=== PATIENT | male | born 1950 ===

== ENCOUNTER 2017-02-11 08:17 | Day surgery (SDC) | payer MEDICARE, BC ==
[2017-02-06 10:01] VITALS: BMI 31.0
[2017-02-11 09:21] VITALS: TEMP 98; O2SAT 99
[2017-02-11] MEDS ORDERED: Propofol 10 mg/ml Inj (20 ML) ONE (10:40)
[2017-02-11] MEDS ORDERED: Midazolam 2 MG/2 ML VIAL ONE (10:40)
[2017-02-11] MEDS ORDERED: Sodium Chloride 0.9% 1,000 ML IV SCH (11:30)
[2017-02-11 12:24] VITALS: BP 111/67; PULSE 59; RESP 18
== END 2017-02-11 12:45 | disposition home or self-care (01) ==
LOC: ENDO 08:17
PROVIDERS: ATTEND Internal Medicine
DX: D50.9 Iron deficiency anemia, unspecified (principal); Z98.84 Bariatric surgery status; K29.50 Unspecified chronic gastritis without bleeding; E11.65 Type 2 diabetes mellitus with hyperglycemia; E66.01 Morbid (severe) obesity due to excess calories; D45 Polycythemia vera; E55.9 Vitamin D deficiency, unspecified; R31.9 Hematuria, unspecified; G47.30 Sleep apnea, unspecified; L40.9 Psoriasis, unspecified; N40.0 Benign prostatic hyperplasia without lower urinary tract symptoms; J06.9 Acute upper respiratory infection, unspecified; K75.9 Inflammatory liver disease, unspecified; M25.439 Effusion, unspecified wrist; K61.1 Rectal abscess; Z68.31 Body mass index [BMI] 31.0-31.9, adult
CPT/HCPCS: 43239; 88305; 88342; J2250; J2704; J3010; J7040 ×2

== ENCOUNTER 2017-04-09 07:19 | Day surgery (SDC) | payer MEDICARE, BC ==
[2017-04-04 11:51] VITALS: BMI 31.7
[2017-04-09] MEDS ORDERED: Propofol 10 mg/ml Inj (20 ML) ONE (09:38)
[2017-04-09] MEDS ORDERED: Sodium Chloride 0.9% 1,000 ML IV SCH (10:30)
[2017-04-09 11:12] VITALS: BP 108/68; PULSE 51; RESP 18; TEMP 97.6; O2SAT 100
== END 2017-04-09 11:33 | disposition home or self-care (01) ==
LOC: ENDO 07:19
PROVIDERS: ATTEND Internal Medicine
DX: K29.50 Unspecified chronic gastritis without bleeding (principal); K63.89 Other specified diseases of intestine; Z98.84 Bariatric surgery status
CPT/HCPCS: 43236; 43251; 88305; 88342; J2704; J7040 ×2

== ENCOUNTER 2017-07-22 06:27 | Day surgery (SDC) | payer MEDICARE, BC ==
[2017-07-11 08:18] VITALS: BMI 31.7
--- NOTE | 2017-07-20 11:26 | HP ---
REASON FOR ADMISSION: Left heart catheterization, possible angioplasty, abnormal stress test. BRIEF CLINICAL HISTORY: This is a 67-year-old male with past medical history significant for hypertension, nonobstructive coronary artery disease, status post cardiac catheterization in 2010, medical treatment recommended, who had recently a stress test done by Dr. Rodriguez and found to be abnormal, so the patient is scheduled for elective cardiac cath and possible angioplasty. The patient denies any chest pain. Denies any shortness of breath or any palpitations. RECENT CARDIAC WORKUP: As follows: The patient had a stress test dated 06/24/2017 that shows probably normal myocardial perfusion study, abnormal partially apical defects, suggestive of ischemia, ejection fraction of 67%. The patient had a previous cardiac catheterization in 07/2011. At that time, ramus intermedius 50% stenosis noted. Moderate aortic stenosis also. The patient had last echo done in [facility] on 01/05/2013 that showed heavily calcified aortic valve with mild stenosis, vegetation cannot ruled out, LVH good function, mild MR, mild AI, dated 01/05/2013. Most recent echo shows moderate aortic stenosis. EKG shows right bundle-branch block and sinus bradycardia. He had last echo in 01/[address] Rodriguez's office shows moderate aortic stenosis. CURRENT MEDICATIONS: The patient at home taking hydrochlorothiazide, potassium chloride, and aspirin. ALLERGIES: SULFAMETHOXAZOLE AND TRIMETHOPRIM. REVIEW OF SYSTEMS: As follows. PHYSICAL EXAMINATION: VITAL SIGNS: Height of the patient is 5 feet 9 inches, weight of the patient is 215 pounds, body mass index 31.7 kg/m2. Rest of the examination as follows: HEENT: PERRLA, intact. NECK: Supple. No carotid bruit or thyromegaly. CHEST: Clear to auscultation. HEART: S1 and S2 regular. ABDOMEN: Soft. EXTREMITIES: Clubbing and cyanosis negative. LABORATORY DATA: Blood workup pending. IMPRESSION: Moderate coronary artery disease in 2011, moderate aortic stenosis, obesity, hypertension, hyperlipidemia, abnormal stress test ischemia. RECOMMENDATIONS: Further recommendation after cardiac catheterization. Risks, benefits, and alternatives discussed with the patient. If the patient is agreeable, will proceed for cardiac catheterization. Thank you, Dr. Mcclain for providing the opportunity in taking care of the patient, Kim Salamanca. We will follow with you. Erik Whatley MD [facility] # [id number]
[2017-07-22 07:10] LABS: BASO # 0.09 K/mm3 (0.0-2.0); BASO % 2.1 % (0.0-3.0); EOS # 0.4 (0.0-0.7); EOS % 8.9 % (1.5-5.0); GRAN # 2.13 (1.4-6.5); GRAN % 50.1 % (50.0-68.0); HEMATOCRIT 36.5 % (42.0-52.0); LYMPH # 1.3 (1.2-3.4); MEAN CELL VOLUME 68.9 fl (80.0-105.0); MEAN CORPUSCULAR HEMOGLOBIN 20.9 pg (25.0-35.0); MEAN CORPUSCULAR HGB CONC 30.4 g/dl (31.0-37.0); MEAN PLATELET VOLUME 8.6 fl (7.0-11.0); MONO # 0.4 (0.1-0.6); MONO % 8.9 % (1.0-6.0); RED CELL DISTRIBUTION WIDTH 17.8 % (11.5-14.5); WHITE BLOOD COUNT 4.3 10^3/ul (4.5-11.0)
[2017-07-22 07:17] VITALS: RESP 18
[2017-07-22 07:17] LABS: INR 1.05 (0.93-1.08); PARTIAL THROMBOPLASTIN TIME 27.3 Seconds (23.7-30.8)
[2017-07-22 07:21] LABS: BLOOD UREA NITROGEN 24 mg/dL (7-21); CALCIUM 9.1 mg/dL (8.4-10.5); CARBON DIOXIDE 28 mmol/L (21-33); CHLORIDE 107 mmol/L (98-107); CHOLESTEROL 177 mg/dL (130-200); GFR AFRICAN-AMERICAN > 60; GLUCOSE,RANDOM 109 mg/dL (70-110); POTASSIUM 3.6 mmol/L (3.6-5.0); SODIUM 145 mmol/L (132-148)
[2017-07-22] MEDS ORDERED: Lidocaine 2% Inj (20ml) ONE (07:27)
[2017-07-22] MEDS ORDERED: Midazolam 2 MG/2 ML VIAL ONE ×2 (07:28→09:49)
[2017-07-22] MEDS ORDERED: Iodixanol 320 MG/ML 200 ML BOTTLE IV ONE (07:29)
[2017-07-22] MEDS ORDERED: Nitroglycerin 50mg in D5W 50 MG/250 ML BOTTLE IV ONE (07:29)
[2017-07-22] MEDS ORDERED: Bacitracin 500 Units/gm Oint Foilpak UD TOP ONE (10:21)
[2017-07-22] MEDS ORDERED: Sodium Chloride 0.9% 1,000 ML IV SCH (10:30)
[2017-07-22 10:38] VITALS: TEMP 97.5; O2SAT 98
[2017-07-22] MEDS ORDERED: Bacitracin 500 Units/gm Oint Foilpak UD ONE (12:27)
[2017-07-22 14:25] VITALS: BP 118/60; PULSE 62
--- NOTE | 2017-07-22 15:06 | CARD ---
APPROVED REPORT EKG Measurement Heart [id number] MS [id number] <Conclusion> Sinus bradycardia Right bundle branch block Abnormal ECG
--- NOTE | 2017-07-22 16:44 | CARD ---
APPROVED REPORT Procedure(s) performed: Left Heart Catheterization HISTORY The patient is a 67 year-old male with a history of : most recent EF: 67%. (EF Method: RADIONUCLIDE), previous diagnostic cath, hypertension , dyslipidemia , Hx of previous cath in 07/2011 non obstructive CAD, had recent abnormal stress test Apical ischemia. INDICATION The indication(s) include : positive stress test. CASE TECHNIQUE The patient was brought electively to the Cardiac Catheterization Laboratory in a fasting state and was prepped and draped in a sterile manner. The left wrist was infiltrated with 2% Lidocaine subcutaneous anesthesia. A 6 Fr Glidesheath (Radial) sheath was inserted into the left radial artery without difficulty. Coronary angiography was performed using coronary diagnostic catheters. The left coronary system was accessed and visualized with a Diagnostic ,5 Fr JL 4 catheter. The right coronary system was accessed and visualized with a Diagnostic ,5 Fr JR 4 catheter. The left ventricle was accessed and visualized with a 5 Fr Pigtail 145 (Angled) catheter. Left ventricular/Aortic Valve gradient assessed on pullback. Left ventriculogram was performed in GOMEZ projection. The patient tolerated the procedure well and there were no complications associated with the procedure. Vessel Analysis The patient's coronary anatomy is right dominant. The left main coronary artery is a large size vessel with diffuse calcification noted throughout this vessel and without significant stenosis. The left main trifurcates to the left anterior descending, circumflex, and ramus. The left anterior descending artery is a large size vessel with diffuse calcification noted throughout this vessel and without significant stenosis. The first diagonal branch is a medium size vessel with diffuse calcification noted throughout this vessel and without significant stenosis. The circumflex artery is a medium size vessel with diffuse calcification noted throughout this vessel and without significant stenosis. There is a 50% stenosis in the mid segment. The first obtuse marginal branch is a medium size vessel with diffuse calcification noted throughout this vessel and without significant stenosis. The ramus intermedius artery is a medium size vessel . There is a 55% stenosis in the proximal segment. The right coronary artery is a large size vessel with diffuse calcification noted throughout this vessel and without significant stenosis. There is a 30% stenosis in the proximal segment. The right posterior descending artery is a medium size vessel with diffuse calcification noted throughout this vessel and without significant stenosis. The right posterolateral branch is a medium size vessel with diffuse calcification noted throughout this vessel and without significant stenosis. Left Ventricle The left ventricle is normal in size with hyperdynamic contractility. The left ventricular ejection fraction is estimated to be 65-70%. The left ventricular end diastolic pressure is 16 mmHg. At the most 10 mm gradient ion Pull back, C/w mild Conclusion Non Obstructive CAd , limited to Mid circumflex and proximal Ramus intermedius. preserved LV FX. Ef-65%, EDP-16 mmof Hg. At the most Peak to peak 10 mm gradient on pull back across aortic Valve, C/w Mild ( by echo reported Moderate ) Recommendations Smoking Cessation Cardiac Rehabilitation Referral Aggressive Medical Therapy Weight Loss Reduction Program CC; Drs. Mcclain / Jennifer.
== END 2017-07-22 14:15 | disposition home or self-care (01) ==
LOC: CATH 06:27
PROVIDERS: ATTEND Internal Medicine Cardiovascular Disease
DX: I25.10 Atherosclerotic heart disease of native coronary artery without angina pectoris (principal); I10 Essential (primary) hypertension; E78.5 Hyperlipidemia, unspecified; R94.39 Abnormal result of other cardiovascular function study; I99.8 Other disorder of circulatory system; F17.200 Nicotine dependence, unspecified, uncomplicated; I35.0 Nonrheumatic aortic (valve) stenosis; I45.10 Unspecified right bundle-branch block; R00.1 Bradycardia, unspecified; E66.9 Obesity, unspecified; Z68.31 Body mass index [BMI] 31.0-31.9, adult
CPT/HCPCS: 36415; 80048; 80061; 85025; 85610; 85730; 86850; 86900; 93005; 93458; 99152; C1769 ×2; C1887 ×2; J1644 ×2; J2250; J3010; J7040